=== PATIENT | male | born 1965 | race Caucasian/White ===

== ENCOUNTER 2017-10-05 17:28 | Emergency (ER) | payer MEDICARE, OTHER ==
[~2017-10-05] VITALS: Ht 180.3 cm; Wt 108.9 kg
[2017-10-05] MEDS ORDERED: TRULICITY1.5 MG/0.5 SQ (17:44)
[2017-10-05] MEDS ORDERED: INSULANPEN (17:44)
[2017-10-05] MEDS ORDERED: OXYC30ER PO ×2 (17:45)
[2017-10-05 18:04] LABS: BASOPHILS ABSOLUTE AUTO 0.03 K/mm3 (0.00-0.23); BASOPHILS PERCENT AUTO 1 % (0-2); EOSINOPHILS ABSOLUTE AUTO 0.07 K/mm3 (0.00-0.68); EOSINOPHILS PERCENT AUTO 1 % (0-6); Hematocrit 43.4 % (37.0-53.0); Hemoglobin 15.6 g/dL (13.5-17.5); IMMATURE GRAN ABSOLUTE AUTO 0.02 K/mm3 (0.00-0.10); IMMATURE GRAN PERCENT AUTO 0 % (0-1); LYMPHOCYTES PERCENT AUTO 15 % (21-46); MONOCYTES ABSOLUTE AUTO 0.55 K/mm3 (0.16-1.47); MONOCYTES PERCENT AUTO 8 % (4-13); Mean Corpuscular HGB 29.1 pg (26.0-34.0); Mean Corpuscular HGB Conc 35.9 g/dL (31.5-36.5); Mean Corpuscular Volume 81 fL (80-100); Mean Platelet Volume 8.4 fL (9.1-12.4); NEUTROPHILS ABSOLUTE AUTO 4.93 K/mm3 (1.96-9.15); NEUTROPHILS PERCENT AUTO 75 % (41-73); Platelet Count 127 K/mm3 (150-400); RDW Coefficient Variation 12.9 % (11.7-14.2); RDW Standard Deviation 37.6 fL (35.1-46.3); Red Blood Cell Count 5.37 M/mm3 (4.30-5.90)
[2017-10-05 18:15] LABS: International Normalized Ratio 0.96
[2017-10-05 18:29] LABS: Troponin I <0.015 ng/mL (0.000-0.040)
[2017-10-05 18:34] LABS: Alanine Aminotransfer (ALT/SGP 59 U/L (12-78); Alk Phos 112 U/L (50-136); Anion Gap 6 mmol/L (6-16); Aspartate Aminotrans (AST/SGOT 35 U/L (12-37); Bilirubin, Total 1.7 mg/dL (0.1-1.0); Blood Urea Nitrogen 16 mg/dL (8-24); Bun/Creatinine Ratio 20.4 (12.0-20.0); CO2, Blood 30 mmol/L (21-32); Chloride, Blood 98 mmol/L (98-108); Creatinine, Blood 0.79 mg/dL (0.60-1.20); Globulin, Blood 3.9 g/dL (2.2-4.0); Glomerular Filtration Rate >60 (60-); Glucose, Blood 328 mg/dL (70-99); Potassium, Blood 4.1 mmol/L (3.5-5.5); Sodium, Blood 134 mmol/L (136-145); Total Protein, Blood 7.9 g/dL (6.4-8.2)
[2018-03-17] MEDS ORDERED: SULFAMETHOXAZO (10:36)
== END 2017-10-05 22:20 | disposition left against medical advice (07) ==
LOC: ER 17:28
PROVIDERS: Emergency Medicine
DX: K81.0 Acute cholecystitis (principal); Z88.5 Allergy status to narcotic agent; Z79.891 Long term (current) use of opiate analgesic; Z79.4 Long term (current) use of insulin; E11.9 Type 2 diabetes mellitus without complications; F17.210 Nicotine dependence, cigarettes, uncomplicated
CPT/HCPCS: 36415; 71046; 76705; 80053; 83690; 83880; 84484; 85025; 85610; 93005; 93010; 96374; 96375; 99284; J1170; J2405

== ENCOUNTER 2018-02-09 16:37 | Inpatient (IN) | payer MEDICARE ==
[~2018-02-09] VITALS: Ht 177.8 cm; Wt 108.6 kg
[~2018-02-09 16:37] MED LIST: INSULANPEN; OXYC30ER PO; TRULICITY1.5 MG/0.5 SQ
[2018-02-09 17:29] LABS: BASOPHILS ABSOLUTE AUTO 0.04 K/mm3 (0.00-0.23); BASOPHILS PERCENT AUTO 1 % (0-2); EOSINOPHILS ABSOLUTE AUTO 0.06 K/mm3 (0.00-0.68); EOSINOPHILS PERCENT AUTO 1 % (0-6); Hematocrit 40.8 % (37.0-53.0); Hemoglobin 14.8 g/dL (13.5-17.5); IMMATURE GRAN ABSOLUTE AUTO 0.01 K/mm3 (0.00-0.10); IMMATURE GRAN PERCENT AUTO 0 % (0-1); LYMPHOCYTES ABSOLUTE AUTO 0.88 K/mm3 (0.84-5.20); LYMPHOCYTES PERCENT AUTO 14 % (21-46); MONOCYTES ABSOLUTE AUTO 0.46 K/mm3 (0.16-1.47); MONOCYTES PERCENT AUTO 8 % (4-13); Mean Corpuscular HGB Conc 36.3 g/dL (31.5-36.5); Mean Corpuscular Volume 83 fL (80-100); Mean Platelet Volume 8.2 fL (9.1-12.4); NEUTROPHILS ABSOLUTE AUTO 4.68 K/mm3 (1.96-9.15); NEUTROPHILS PERCENT AUTO 76 % (41-73); Platelet Count 145 K/mm3 (150-400); RDW Coefficient Variation 13.2 % (11.7-14.2); RDW Standard Deviation 39.1 fL (35.1-46.3); Red Blood Cell Count 4.94 M/mm3 (4.30-5.90); White Blood Cell Count 6.13 K/mm3 (4.00-11.30)
[2018-02-09 17:44] LABS: Alanine Aminotransfer (ALT/SGP 43 U/L (12-78); Albumin, Blood 3.9 g/dL (3.4-5.0); Alk Phos 118 U/L (50-136); Anion Gap 8 mmol/L (6-16); Aspartate Aminotrans (AST/SGOT 28 U/L (12-37); Bilirubin, Total 1.6 mg/dL (0.1-1.0); Blood Urea Nitrogen 14 mg/dL (8-24); Bun/Creatinine Ratio 16.2 (12.0-20.0); CO2, Blood 27 mmol/L (21-32); Chloride, Blood 101 mmol/L (98-108); Creatinine, Blood 0.87 mg/dL (0.60-1.20); Glomerular Filtration Rate >60 (60-); Glucose, Blood 257 mg/dL (70-99); Potassium, Blood 4.2 mmol/L (3.5-5.5); Sodium, Blood 136 mmol/L (136-145); Total Protein, Blood 7.9 g/dL (6.4-8.2)
[2018-02-09] MEDS ORDERED: OXYC30 PO (19:55)
[2018-02-09] MEDS ORDERED: LISI20 PO (19:55)
[2018-02-09] MEDS ORDERED: TOUJEO SOL300 UNIT/1 SC (19:59)
[2018-02-10 21:35] LABS: Vancomycin, Trough 11.3 ug/mL (5.0-10.0)
[2018-02-11] MEDS ORDERED: AMLO5 PO (12:11)
[2018-02-11] MEDS ORDERED: Augmentin 875-1 EACH PO (12:13)
[2018-02-11] MEDS ORDERED: HYDR1TAB94 PO (12:23)
== END 2018-02-11 12:43 | disposition home or self-care (01) | DRG 617 ==
LOC: ER 16:37 → MEDS 20:55
PROVIDERS: Emergency Medicine; Internal Medicine; Student in an Organized Health Care Education/Training Program
PROC: 0Y6T0Z1 Detachment at Right 3rd Toe, High, Open Approach (ICD-10-PCS; principal; 2018-02-11 07:30)
DX: E11.69 Type 2 diabetes mellitus with other specified complication (principal); M86.171 Other acute osteomyelitis, right ankle and foot; E11.52 Type 2 diabetes mellitus with diabetic peripheral angiopathy with gangrene; I96 Gangrene, not elsewhere classified; L03.115 Cellulitis of right lower limb; E11.621 Type 2 diabetes mellitus with foot ulcer; L97.519 Non-pressure chronic ulcer of other part of right foot with unspecified severity; E11.42 Type 2 diabetes mellitus with diabetic polyneuropathy; I10 Essential (primary) hypertension; K74.60 Unspecified cirrhosis of liver; B19.20 Unspecified viral hepatitis C without hepatic coma; Z79.4 Long term (current) use of insulin; Z79.891 Long term (current) use of opiate analgesic; Z79.899 Other long term (current) drug therapy; Z87.891 Personal history of nicotine dependence; F17.200 Nicotine dependence, unspecified, uncomplicated
CPT/HCPCS: 36415; 73630; 80053; 80202; 82947; 83036; 85025; 85651; 87070; 87075; 87205; 88305; 96365; 96367; 99285; J0171; J0295; J1815; J2250; J2405; J2543; J3370; J7030; J7050; J7120

== ENCOUNTER 2019-08-28 13:48 | Emergency (ER) | payer MEDICARE, OTHER ==
[~2019-08-28] VITALS: Ht 180.3 cm; Wt 110.7 kg
[~2019-08-28 13:48] MED LIST changes: +AMLO5 PO; +Augmentin 875-1 EACH PO; +HYDR1TAB94 PO; +LISI20 PO; +OXYC30 PO; +SULFAMETHOXAZO; +TOUJEO SOL300 UNIT/1 SC
[2019-08-28 14:39] LABS: Source, Urine Clean Catch
[2019-08-28 14:43] LABS: BASOPHILS ABSOLUTE AUTO 0.03 K/mm3 (0.00-0.23); BASOPHILS PERCENT AUTO 1 % (0-2); EOSINOPHILS ABSOLUTE AUTO 0.06 K/mm3 (0.00-0.68); EOSINOPHILS PERCENT AUTO 1 % (0-6); Hematocrit 41.6 % (37.0-53.0); Hemoglobin 14.2 g/dL (13.5-17.5); IMMATURE GRAN ABSOLUTE AUTO 0.03 K/mm3 (0.00-0.10); IMMATURE GRAN PERCENT AUTO 1 % (0-1); LYMPHOCYTES ABSOLUTE AUTO 0.25 K/mm3 (0.84-5.20); LYMPHOCYTES PERCENT AUTO 4 % (21-46); MONOCYTES ABSOLUTE AUTO 0.47 K/mm3 (0.16-1.47); MONOCYTES PERCENT AUTO 8 % (4-13); Mean Corpuscular HGB 28.7 pg (26.0-34.0); Mean Corpuscular HGB Conc 34.1 g/dL (31.5-36.5); Mean Corpuscular Volume 84 fL (80-100); Mean Platelet Volume 7.8 fL (9.1-12.4); NEUTROPHILS ABSOLUTE AUTO 4.88 K/mm3 (1.96-9.15); NEUTROPHILS PERCENT AUTO 85 % (41-73); Platelet Count 123 K/mm3 (150-400); RDW Coefficient Variation 12.6 % (11.7-14.2); RDW Standard Deviation 37.8 fL (35.1-46.3); Red Blood Cell Count 4.95 M/mm3 (4.30-5.90); White Blood Cell Count 5.72 K/mm3 (4.00-11.30)
[2019-08-28 14:45] LABS: Bilirubin, Urine Neg (Neg); Blood, Urine 3+ (Neg); Glucose Qualitative, Urine Neg (Neg); Ketones, Urine Neg (Neg); Leukocyte Esterase, Urine Neg (Neg); Nitrite, Urine Neg (Neg); Protein, Urine 3+ (Neg); Urobilinogen, Urine NORM (Normal)
[2019-08-28 14:52] LABS: Appearance, Urine Clear (Clear); Color, Urine Yellow (P-Yellow)
[2019-08-28 14:53] LABS: Bacteria Few /hpf; Squamous Epithelial Cells Rare /hpf (Few); White Blood Cells, Urine Not Seen /hpf (0-5)
[2019-08-28 15:01] LABS: Alanine Aminotransfer (ALT/SGP 36 U/L (12-78); Albumin, Blood 2.9 g/dL (3.4-5.0); Albumin/Globulin Ratio 0.6 (0.8-1.8); Alk Phos 227 U/L (50-136); Anion Gap 5 mmol/L (6-16); Aspartate Aminotrans (AST/SGOT 33 U/L (12-37); Bilirubin, Total 0.9 mg/dL (0.1-1.0); Blood Urea Nitrogen 13 mg/dL (8-24); Bun/Creatinine Ratio 18.1 (12.0-20.0); CO2, Blood 30 mmol/L (21-32); Calcium, Blood 9.1 mg/dL (8.5-10.1); Chloride, Blood 100 mmol/L (98-108); Creatinine, Blood 0.72 mg/dL (0.60-1.20); Glomerular Filtration Rate >60 (60-); Glucose, Blood 128 mg/dL (70-99); Potassium, Blood 4.6 mmol/L (3.5-5.5); Sodium, Blood 135 mmol/L (136-145); Total Protein, Blood 7.9 g/dL (6.4-8.2)
== END 2019-08-28 17:18 | disposition home or self-care (01) ==
LOC: ER 13:48
PROVIDERS: Physician Assistant
DX: R16.0 Hepatomegaly, not elsewhere classified (principal); Z88.5 Allergy status to narcotic agent; Z79.899 Other long term (current) drug therapy; Z79.4 Long term (current) use of insulin; E11.9 Type 2 diabetes mellitus without complications; F17.210 Nicotine dependence, cigarettes, uncomplicated
CPT/HCPCS: 36415; 74176; 80053; 81001; 85025; 99284-25

== ENCOUNTER 2019-11-25 20:10 | Inpatient (IN) | payer MEDICARE, OTHER ==
[~2019-11-25] VITALS: Ht 180.3 cm; Wt 101.2 kg
[2019-11-25] MEDS ORDERED: ALPR.5 PO (20:24)
[2019-11-25 23:24] LABS: Hematocrit 39.5 % (37.0-53.0); Hemoglobin 13.3 g/dL (13.5-17.5); Mean Corpuscular HGB 28.1 pg (26.0-34.0); Mean Corpuscular HGB Conc 33.7 g/dL (31.5-36.5); Mean Corpuscular Volume 83 fL (80-100); Mean Platelet Volume 8.6 fL (9.1-12.4); Platelet Count 141 K/mm3 (150-400); RDW Coefficient Variation 12.9 % (11.7-14.2); RDW Standard Deviation 39.3 fL (35.1-46.3); Red Blood Cell Count 4.74 M/mm3 (4.30-5.90); White Blood Cell Count 5.62 K/mm3 (4.00-11.30)
[2019-11-25 23:38] LABS: Alanine Aminotransfer (ALT/SGP 36 U/L (12-78); Albumin, Blood 2.8 g/dL (3.4-5.0); Albumin/Globulin Ratio 0.6 (0.8-1.8); Alk Phos 245 U/L (50-136); Anion Gap 6 mmol/L (6-16); Aspartate Aminotrans (AST/SGOT 44 U/L (12-37); Bilirubin, Total 1.2 mg/dL (0.1-1.0); Blood Urea Nitrogen 14 mg/dL (8-24); Bun/Creatinine Ratio 17.4 (12.0-20.0); CO2, Blood 31 mmol/L (21-32); Calcium, Blood 9.2 mg/dL (8.5-10.1); Chloride, Blood 95 mmol/L (98-108); Creatinine, Blood 0.81 mg/dL (0.60-1.20); Globulin, Blood 4.7 g/dL (2.2-4.0); Glomerular Filtration Rate >60 (60-); Glucose, Blood 153 mg/dL (70-99); Potassium, Blood 4.5 mmol/L (3.5-5.5); Sodium, Blood 132 mmol/L (136-145); Total Protein, Blood 7.5 g/dL (6.4-8.2)
[2019-11-25 23:52] LABS: International Normalized Ratio 1.07; Prothrombin Time Results 11.4 Sec (9.7-11.5)
--- NOTE | 2019-11-26 01:15 | NUR ---
PT ARRIVED TO FLOOR, A/O. RLE SHORTENED, VERY PAINFUL W/MVMT. CAP REFILL WNL, PT DENIES N/T. PT REP LEG PAIN SINCE 11/16, HAS BEEN UNABLE TO GET OUT OF CHAIR R/T PAIN. PT REP CURRENT LIVER CA DX, IS DECLINING TREATMENTS. ALSO HAS CHRONIC BACK/NECK PAIN, IS A PT OF [employer]IA LANDRY AT [facility] [place]. PT ORIENTED TO ROOM/CALL LIGHT, WILL MONITOR AND TX PER ORDERS
[2019-11-26] MEDS ORDERED: TRESIBA100 UNIT/1 SC (01:32)
[2019-11-26 03:00] LABS: Source, Urine Catheter
[2019-11-26 03:04] LABS: Bilirubin, Urine Neg (Neg); Blood, Urine 4+ (Neg); Glucose Qualitative, Urine Neg (Neg); Ketones, Urine Neg (Neg); Leukocyte Esterase, Urine Neg (Neg); Nitrite, Urine Neg (Neg); Protein, Urine 3+ (Neg); Urobilinogen, Urine 1+ (Normal)
[2019-11-26 03:14] LABS: Appearance, Urine Clear (Clear); Bacteria Not Seen /hpf; Color, Urine Yellow (P-Yellow); Red Blood Cells, Urine 0-2 /hpf (0-2); Squamous Epithelial Cells Not Seen /hpf (Few); White Blood Cells, Urine Not Seen /hpf (0-5)
--- NOTE | 2019-11-26 06:13 | NUR ---
PT NEW ADMIT THIS SHIFT FOR R FEMUR FX. PT VSS, PAIN MGD PER EMAR W/REP RELIEF. PT NPO, IVF CONT. ORTHO CONSULT CALLED INTO [facility]. PT USING CALL LIGHT FOR ASSISTANCE, WILL CONT TO MONITOR UNTIL REP GIVEN TO ONCOMING RN.
--- NOTE | 2019-11-26 12:56 | NUR ---
PT IN PACU FOR PRE-OP HOLDING. NOZIN NASAL CUSTOMER PROGRAM MANAGER DONE, PERIDEX SWISH AND SWALLOW GIVEN. RIGHT HIP CLEANED WITH CHLORHEXIDINE.
--- NOTE | 2019-11-26 14:20 | NUR ---
11/26/19 1420 Livia Bardales PT HAD ANGUIANO IN PLACE PRIOR TO ENTERING OR, DRAINING CLEAR DARK PAOLA URINE.
--- NOTE | 2019-11-26 15:48 | NUR ---
SHIFT SUMMARY PT IS A/O X 4 AND THIS MORNING HAD C/O PAIN BUT REPORTED THAT THE ORDERED PAIN MEDS WERE EFFECTIVE AND HE NAPPED UNTIL HE WAS PICKED UP FOR SURGERY. ANNMARIE IS PATENT. PT WAS NPO. DR LAWLER CONSULTED WITH PT AND HE WAS TAKEN FOR HIP REPAIR AROUND LUNCH. AWAITING REPORT FROM PACU.
--- NOTE | 2019-11-26 22:41 | NUR ---
PT C/O R EYE FEELING GRITTY AND SCRATCHED SINCE AWAKENING POSTOP. NO RELIEF WITH USE OF SALINE DROPS, OR EYE PATCH. BROOK AT BEDSIDE CHECKING PTS EYE NOW.
[2019-11-27 03:28] LABS: BASOPHILS ABSOLUTE AUTO 0.02 K/mm3 (0.00-0.23); BASOPHILS PERCENT AUTO 0 % (0-2); EOSINOPHILS ABSOLUTE AUTO 0.01 K/mm3 (0.00-0.68); EOSINOPHILS PERCENT AUTO 0 % (0-6); Hematocrit 31.6 % (37.0-53.0); Hemoglobin 10.8 g/dL (13.5-17.5); IMMATURE GRAN ABSOLUTE AUTO 0.03 K/mm3 (0.00-0.10); IMMATURE GRAN PERCENT AUTO 0 % (0-1); LYMPHOCYTES ABSOLUTE AUTO 0.41 K/mm3 (0.84-5.20); LYMPHOCYTES PERCENT AUTO 4 % (21-46); MONOCYTES ABSOLUTE AUTO 0.69 K/mm3 (0.16-1.47); MONOCYTES PERCENT AUTO 7 % (4-13); Mean Corpuscular HGB 27.8 pg (26.0-34.0); Mean Corpuscular HGB Conc 34.2 g/dL (31.5-36.5); Mean Corpuscular Volume 81 fL (80-100); Mean Platelet Volume 8.1 fL (9.1-12.4); NEUTROPHILS ABSOLUTE AUTO 8.24 K/mm3 (1.96-9.15); NEUTROPHILS PERCENT AUTO 88 % (41-73); Platelet Count 140 K/mm3 (150-400); RDW Coefficient Variation 13.2 % (11.7-14.2); RDW Standard Deviation 39.3 fL (35.1-46.3); Red Blood Cell Count 3.88 M/mm3 (4.30-5.90)
[2019-11-27 03:48] LABS: Anion Gap 5 mmol/L (6-16); Blood Urea Nitrogen 21 mg/dL (8-24); Bun/Creatinine Ratio 25.3 (12.0-20.0); CO2, Blood 29 mmol/L (21-32); Calcium, Blood 8.2 mg/dL (8.5-10.1); Chloride, Blood 97 mmol/L (98-108); Creatinine, Blood 0.83 mg/dL (0.60-1.20); Glomerular Filtration Rate >60 (60-); Glucose, Blood 169 mg/dL (70-99); Potassium, Blood 4.8 mmol/L (3.5-5.5); Sodium, Blood 131 mmol/L (136-145)
--- NOTE | 2019-11-27 07:29 | NUR ---
SUMMARY PT WAS GIVEN EYE DROPS PER NEW ORDERS TONIGHT WITH VERB OF RELIEF. PT REQUIRING MULTIPLE DOSES OF PAIN MEDS FOR PAIN CONTROL PT WITH HX CHRONIC PAIN AND ROUTINE NARCOTIC USE AT HOME. ENC AND ASSISTED PT FOR REPOSITIONING TONIGHT.
--- NOTE | 2019-11-27 09:01 | NUR ---
DISCUSSED PT'S STATUS WITH DR LEDBETTER INCLUDING BOWEL CARE. REPORTS OK FOR PT TO HAVE PRUNE JUICE HE REPORTS TAKING AT HOME, OTHER MEDICATIONS PER EMAR. PT REPORTS WANTING TO HAVE PRUNE JUICE AND NOT SUPPOSITORY AT THIS TIME.
--- NOTE | 2019-11-27 14:23 | NUR ---
PT MEDICATIONS VERIFIED WITH PHARMACY: PT REPORTS GETTING SHORT ACTING OXYCODONE FROM [facility]. [facility] NOTIFIED, REPORTS PT PRESCRIPTION FOR 30 MG PO ONE TABLET EVERY THREE HOURS PRN WITH A MAX OF SEVEN PER DAY. PT REPORTS GETTING LONG ACTING OXYCONTIN AT [facility] IN [facility] ON [address]. PHARMACY REPORTS PT GETTING 2 TABS OF 60 MG BID, (DOSE BEING 120 MG BID), THESE MEDICATIONS WERE CLARIFIED BY PHARMACIST. DR LEDBETTER NOTIFIED, REPORTS WILL CHANGE MEDICATIONS, REPORTS PT MAY HAVE DOSE OF 60 MG OXYCONTIN NOW.
--- NOTE | 2019-11-27 14:29 | NUR ---
THERAPY HERE TO WORK WITH PT. SEE Moira, LARY.
--- NOTE | 2019-11-27 17:49 | NUR ---
SHIFT SUMMARY PT EATING AND DRINKING, PT HAS ANGUIANO IN PLACE. PT WAS ABLE TO WORK WITH THERAPY TODAY AND IS UP IN CHAIR. MEDICATIONS WERE CLARIFIED BY PT'S PHARMACY TODAY, DR LEDBETTER WAS NOTIFIED OF RESULTS. DR LEDBETTER PLACED ORDERS. PT BEEN PLEASANT AND COOP. PT BEEN ASSISTED WITH ADL'S PRN.
[2019-11-28 04:42] LABS: BASOPHILS ABSOLUTE AUTO 0.03 K/mm3 (0.00-0.23); BASOPHILS PERCENT AUTO 0 % (0-2); EOSINOPHILS ABSOLUTE AUTO 0.01 K/mm3 (0.00-0.68); EOSINOPHILS PERCENT AUTO 0 % (0-6); Hematocrit 27.9 % (37.0-53.0); Hemoglobin 9.5 g/dL (13.5-17.5); IMMATURE GRAN ABSOLUTE AUTO 0.02 K/mm3 (0.00-0.10); IMMATURE GRAN PERCENT AUTO 0 % (0-1); LYMPHOCYTES ABSOLUTE AUTO 0.41 K/mm3 (0.84-5.20); LYMPHOCYTES PERCENT AUTO 6 % (21-46); MONOCYTES ABSOLUTE AUTO 0.74 K/mm3 (0.16-1.47); MONOCYTES PERCENT AUTO 11 % (4-13); Mean Corpuscular HGB 27.7 pg (26.0-34.0); Mean Corpuscular HGB Conc 34.1 g/dL (31.5-36.5); Mean Corpuscular Volume 81 fL (80-100); NEUTROPHILS ABSOLUTE AUTO 5.85 K/mm3 (1.96-9.15); NEUTROPHILS PERCENT AUTO 83 % (41-73); Platelet Count 118 K/mm3 (150-400); RDW Coefficient Variation 13.1 % (11.7-14.2); RDW Standard Deviation 38.9 fL (35.1-46.3); Red Blood Cell Count 3.43 M/mm3 (4.30-5.90); White Blood Cell Count 7.06 K/mm3 (4.00-11.30)
[2019-11-28 05:00] LABS: Anion Gap 3 mmol/L (6-16); Blood Urea Nitrogen 15 mg/dL (8-24); Bun/Creatinine Ratio 20.1 (12.0-20.0); CO2, Blood 32 mmol/L (21-32); Chloride, Blood 99 mmol/L (98-108); Creatinine, Blood 0.75 mg/dL (0.60-1.20); Glomerular Filtration Rate >60 (60-); Glucose, Blood 155 mg/dL (70-99); Magnesium, Blood 1.9 mg/dL (1.6-2.4); Potassium, Blood 4.4 mmol/L (3.5-5.5); Sodium, Blood 134 mmol/L (136-145)
--- NOTE | 2019-11-28 05:44 | NUR ---
SHIFT SUMMARY AOX4. VSS. DENIES N/V OR DYSPNEA. REPORTS 7-06/01 PAIN IN R HIP & "LIVER" FROM CA, MEDICATED 2X W/30MG OXYCODONE & 1X W/120MG OXYCONTIN PER ORDERS, REPORTS LITTLE RELIEF. ABLE TO MOVE/WIGGLE FOOT/TOES ON R LEG, PULSES STRONG, AQUACEL BANDAGE C/D/I. PT HAD LARGE HARD BM LAST NIGHT. ANNMARIE IS PATENT & DRAINING CLEAR YELLOW URINE. SPO2 @99% ON 2L O2, PT STATES HE NORMALLY DOES NOT WEAR O2, REMOVED O2 @THIS TIME & SPO2 @96% ON RA. PT STATES HE IS HOPING TO GO HOME TODAY. CALL LIGHT IN REACH.
[2019-11-28] MEDS ORDERED: BISA10S PR (12:22)
[2019-11-28] MEDS ORDERED: DOCU100 PO (12:22)
[2019-11-28] MEDS ORDERED: ACULAR5 M1 RIGHTEYE (12:24)
[2019-11-28] MEDS ORDERED: Milk Of Ma400 MG/5 M PO (12:25)
[2019-11-28] MEDS ORDERED: KETO10 PO (12:25)
[2019-11-28] MEDS ORDERED: Nicoderm Cq1 EAC1 TOP (12:25)
[2019-11-28] MEDS ORDERED: SENNA LAXATIVE8.6 MG PO (12:26)
--- NOTE | 2019-11-28 13:04 | NUR ---
DISCHARGE PT EXCITED FOR D/C. MEDS CALLED TO PHARMACY OF CHOICE. DRSGS GIVEN. ESCORTED OUT VIA W/C TO PRIVATE VEHICLE.
== END 2019-11-28 12:50 | disposition home health service (06) | DRG 470 ==
LOC: ER 20:10 → SURS 11-26 00:11
PROVIDERS: Family Medicine; Nurse Practitioner Acute Care; Orthopaedic Surgery; ADMIT Internal Medicine
PROC: 0SR904A Replacement of Right Hip Joint with Ceramic on Polyethylene Synthetic Substitute, Uncemented, Open Approach (ICD-10-PCS; principal; 2019-11-26 11:15)
DX: S72.001A Fracture of unspecified part of neck of right femur, initial encounter for closed fracture (principal); F11.20 Opioid dependence, uncomplicated; B18.2 Chronic viral hepatitis C; K74.60 Unspecified cirrhosis of liver; E11.42 Type 2 diabetes mellitus with diabetic polyneuropathy; F17.210 Nicotine dependence, cigarettes, uncomplicated; Z85.05 Personal history of malignant neoplasm of liver
CPT/HCPCS: 36415; 51702; 71045; 72170; 73502; 80048; 80053; 81001; 82947; 83735; 85025; 85027; 85610; 85730; 86850; 86900; 86901; 86923; 94761; 94762; 96374; 97110; 97116; 97162; 97530; 99285-25; A9270-GY; J0171; J0690; J0735; J1100; J1170; J1644; J1885; J2250; J2270; J2370; J2405; J2704; J2795; J3010; J7030; J7120; P9016

== ENCOUNTER 2020-01-09 17:30 | Emergency (ER) | payer MEDICARE, OTHER ==
[~2020-01-09] VITALS: Ht 180.3 cm; Wt 90.7 kg
[~2020-01-09 17:30] MED LIST changes: +ACULAR5 M1 RIGHTEYE; +ALPR.5 PO; +BISA10S PR; +DOCU100 PO; +KETO10 PO; +Milk Of Ma400 MG/5 M PO; +Nicoderm Cq1 EAC1 TOP; +SENNA LAXATIVE8.6 MG PO; +TRESIBA100 UNIT/1 SC
[2020-01-09 18:32] LABS: BASOPHILS ABSOLUTE AUTO 0.04 K/mm3 (0.00-0.23); BASOPHILS PERCENT AUTO 1 % (0-2); EOSINOPHILS ABSOLUTE AUTO 0.04 K/mm3 (0.00-0.68); EOSINOPHILS PERCENT AUTO 1 % (0-6); Hematocrit 40.2 % (37.0-53.0); Hemoglobin 13.2 g/dL (13.5-17.5); IMMATURE GRAN ABSOLUTE AUTO 0.01 K/mm3 (0.00-0.10); IMMATURE GRAN PERCENT AUTO 0 % (0-1); LYMPHOCYTES ABSOLUTE AUTO 0.69 K/mm3 (0.84-5.20); LYMPHOCYTES PERCENT AUTO 12 % (21-46); MONOCYTES ABSOLUTE AUTO 0.54 K/mm3 (0.16-1.47); MONOCYTES PERCENT AUTO 9 % (4-13); Mean Corpuscular HGB 27.3 pg (26.0-34.0); Mean Corpuscular HGB Conc 32.8 g/dL (31.5-36.5); Mean Corpuscular Volume 83 fL (80-100); Mean Platelet Volume 8.3 fL (9.1-12.4); NEUTROPHILS ABSOLUTE AUTO 4.51 K/mm3 (1.96-9.15); NEUTROPHILS PERCENT AUTO 77 % (41-73); Platelet Count 170 K/mm3 (150-400); RDW Coefficient Variation 13.6 % (11.7-14.2); RDW Standard Deviation 41.8 fL (35.1-46.3); Red Blood Cell Count 4.84 M/mm3 (4.30-5.90); White Blood Cell Count 5.83 K/mm3 (4.00-11.30)
[2020-01-09 18:53] LABS: Alanine Aminotransfer (ALT/SGP 36 U/L (12-78); Albumin, Blood 3.7 g/dL (3.4-5.0); Albumin/Globulin Ratio 0.8 (0.8-1.8); Alk Phos 215 U/L (50-136); Anion Gap 3 mmol/L (6-16); Aspartate Aminotrans (AST/SGOT 37 U/L (12-37); Blood Urea Nitrogen 12 mg/dL (8-24); Bun/Creatinine Ratio 14.3 (12.0-20.0); CO2, Blood 31 mmol/L (21-32); Calcium, Blood 9.1 mg/dL (8.5-10.1); Chloride, Blood 99 mmol/L (98-108); Creatinine, Blood 0.84 mg/dL (0.60-1.20); Globulin, Blood 4.5 g/dL (2.2-4.0); Glomerular Filtration Rate >60 (60-); Glucose, Blood 178 mg/dL (70-99); Potassium, Blood 4.1 mmol/L (3.5-5.5); Sodium, Blood 133 mmol/L (136-145); Total Protein, Blood 8.2 g/dL (6.4-8.2); Troponin I <0.015 ng/mL (0.000-0.040)
== END 2020-01-09 19:02 | disposition left against medical advice (07) ==
LOC: ER 17:30
PROVIDERS: Emergency Medicine
DX: Z53.21 Procedure and treatment not carried out due to patient leaving prior to being seen by health care provider (principal); Z79.899 Other long term (current) drug therapy; Z79.4 Long term (current) use of insulin
CPT/HCPCS: 36415; 71046; 80053; 82947; 83880; 84484; 85025; 93005; 93010; 99283-25